=== PATIENT | male | born 1995 | race Caucasian/White ===

== ENCOUNTER 2017-02-19 16:17 | Emergency (ER) | payer BC ==
[~2017-02-19] VITALS: Ht 188 cm; Wt 79.2 kg
--- NOTE | 2017-02-19 16:29 | EMERGENCY ROOM VISIT NOTE ---
History Report prepared by Alondra: Shravan Granado Under the Supervision of: Dr. Maikel Shipley M.D. First contact with patient: 16:19 Stated Complaint: FALL, SYNCOPE, CUT ON FACE History of Present Illness The patient is a 21 year old male who presents to the Emergency Room with complaints of fall. The patient states that he was not able to sleep last night before his race this morning. The patient states that he was racing and was about to finish when his leg locked up. He states that he tried to push through his leg locking up and rounded a corner when he fell. He remembers going down and trying to break his fall with his hands but he was unsuccessful. He remembers hitting the ground and remembers people around him when he woke up. Family members are at bedside and they said there is a positive loss of consciousness for a few seconds. The patient states that he is currently not in pain, with the exception of the minor scrapes on his face. He denies neck pain and leg pain. The patient reports no pertinent medical history. Tetanus up -to-date Source of History: patient Onset: GAMING TABLE OPERATOR Position: other (global) Quality: other (unconscious for a couple of seconds, confused for a minute) Timing: resolved Associated Symptoms: No neck pain Note: Associated symptoms: negative leg pain, positive face lacerations Review of Systems See HPI for pertinent positives and negatives. A total of ten systems were reviewed and were otherwise negative. Family History Patient reports no known family medical history. Social History Marital Status: single Housing Status: lives with roommate Occupation Status: student Current/Historical Medications Scheduled Amino Acids (Aminos), 4-8 TABS PO DAILY Cholecalciferol (Vitamin D3), 1 TAB PO DAILY Multiple Vitamins W/ Minerals (Mens Multi Vitamin & Mine), 1 TAB PO DAILY Oyster Shell (Calcium), 500 MG PO DAILY Scheduled PRN Naproxen (Aleve), 2-4 TAB PO BID PRN for Pain Allergies Coded Allergies: No Known Allergies (Unverified , 02/19/17) Physical Exam Vital Signs Date Time Temp Pulse Resp B/P (MAP) Pulse Ox O2 Delivery O2 Flow Rate FiO2 02/19/17 17:02 37.1 104 18 137/53 94 Room Air Physical Exam GENERAL: Awake, alert, well-appearing, in no distress HENT: Normocephalic, abrasions to the face. no hemotympanum bilaterally, dennis sign negative bilaterally. Oropharynx unremarkable. EYES: Normal conjunctiva. Sclera non-icteric. PERRL bilaterally. EOMI bilaterally. NECK: Supple. No nuchal rigidity. FROM. No JVD. Patient's c-collar. RESPIRATORY: Clear to auscultation. No wheezes, rhonchi or rales bilaterally. CARDIAC: Regular rate, normal rhythm. Extremities warm and well perfused. Equal palpable radial pulses to the bilateral upper extremities. Equal palpable DP pulses to the bilateral lower extremities. ABDOMEN: Soft, non-distended. No tenderness to palpation. No rebound or guarding. No masses. Rovsig Negative. RECTAL: Deferred. MUSCULOSKELETAL: Chest examination reveals no tenderness. The back is symmetrical on inspection without obvious abnormality. There is no CVA tenderness to palpation. No C, T, and L spine tenderness. No joint edema. LOWER EXTREMITIES: Calves are equal size bilaterally and non-tender. No edema. No discoloration. NEURO: Normal sensorium. No sensory or motor deficits noted. No pronator drift. No facial droop. No dysarthria. SKIN: No rash or jaundice noted. Medical Decision & Procedures ER Provider Diagnostic Interpretation: Radiology results as stated below per my review and radiologist interpretation: HEAD WITHOUT CONTRAST (CT) CT DOSE: 537.48 mGy.cm HISTORY: Trauma fall + LOC TECHNIQUE: Multiaxial CT images of the head were performed without the use of intravenous contrast. A dose lowering technique was utilized adhering to the principles of ALARA. Comparison: None. Findings: The paranasal sinuses and mastoid air cells are clear. The calvarium and skull base are intact. The ventricles and sulci are within normal limits. There is no mass, hematoma, midline shift, or acute infarct. Impression: No acute intracranial abnormality. The above report was generated using voice recognition software. It may contain grammatical, syntax or spelling errors. Electronically signed by: Negrito Macias M.D. 02/19/2017 5:31 PM Dictated Date/Time: 02/19/2017 5:30 PM Laboratory Results Test 02/19/17 16:45 Bedside Glucose 111 mg/dl (70-99) Laboratory results reviewed by ak ED Course 1620: The patient was evaluated in room B04B. A complete history and physical exam was performed. C-collar was cleared, no C-spine tenderness no pain with passive movement or active movement of the neck Medical Decision Vital signs stable. Patient had head CT conducted given that the patient had a witnessed fall and then positive loss of consciousness. Head CT was within normal limits. Patient most likely suffering from concussion. Reports that his pain is mild. Tolerating by mouth in the emergency department. Patient be discharged home with his parents. Discharge instructions and return precautions given to parents and patient. Both verbalized understanding and agreed with the plan. Agrees to practice sprain rest and limited time on the computer, and throat television, and not to strain his eyes. Agrees to hydrate himself properly. Medication Reconcilliation Current Medication List: was personally reviewed by me Blood Pressure Screening Patient's blood pressure: Elevated blood pressure Blood pressure disposition: Elevated BP felt to be situational Impression Primary Impression: Closed head injury Scribe Attestation The scribe's documentation has been prepared under my direction and personally reviewed by me in its entirety. I confirm that the note above accurately reflects all work, treatment, procedures, and medical decision making performed by me. The chart was completed utilizing [employer] Speech voice recognition software. Grammatical errors, random word insertions, pronoun errors, and incomplete sentences are an occasional consequence of this system due to software limitations, ambient noise, and hardware issues. Any formal questions or concerns about the content, text, or information contained within the body of this dictation should be directly addressed to the physician for clarification. Problem Qualifiers Primary Impression: Closed head injury Encounter type: initial encounter Qualified Codes: S09.90XA - Unspecified injury of head, initial encounter
[2017-02-19] MEDS ORDERED: CHOL400T PO (16:44)
[2017-02-19] MEDS ORDERED: OYST500T47 PO (16:44)
[2017-02-19] MEDS ORDERED: MULT-600 PO (16:44)
[2017-02-19] MEDS ORDERED: [UNRECOGNIZED DRUG - CODE] PO (16:44)
[2017-02-19] MEDS ORDERED: NAPR1TAB9 PO (16:44)
[2017-02-19 17:02] VITALS: BP 137/53; PULSE 104; TEMP 37.1; O2SAT 94; Ht 188 cm; Wt 79.2 kg
--- NOTE | 2017-02-19 17:32 | DIAGNOSTIC IMAGING REPORT ---
HEAD WITHOUT CONTRAST (CT) CT DOSE: 537.48 mGy.cm HISTORY: Trauma fall + LOC TECHNIQUE: Multiaxial CT images of the head were performed without the use of intravenous contrast. A dose lowering technique was utilized adhering to the principles of ALARA. Comparison: None. Findings: The paranasal sinuses and mastoid air cells are clear. The calvarium and skull base are intact. The ventricles and sulci are within normal limits. There is no mass, hematoma, midline shift, or acute infarct. Impression: No acute intracranial abnormality. The above report was generated using voice recognition software. It may contain grammatical, syntax or spelling errors. Electronically signed by: Negrito Macias M.D. 02/19/2017 5:31 PM Dictated Date/Time: 02/19/2017 5:30 PM
== END 2017-02-19 18:15 | disposition home or self-care (01) ==
LOC: EDBD 16:17 → C.EDB 16:20
DX: S09.90XA Unspecified injury of head, initial encounter (principal); W18.30XA Fall on same level, unspecified, initial encounter; Y93.02 Activity, running; S00.81XA Abrasion of other part of head, initial encounter